=== PATIENT | female | born 1995 | race Caucasian/White ===

== ENCOUNTER 2023-05-12 18:38 | Emergency (ER) | payer OTHER, SELFPAY ==
[2023-05-12 18:44] VITALS: BP 113/66; BMI 19.4
--- NOTE | 2023-05-12 19:09 | ED.MUSCINJ ---
HPI-Injury
General
Chief Complaint: Extremity Pain (non-traumatic)
Source: patient
Exam Limitations: none
Time Seen by Provider: 05/12/23 19:06
Nursing documentation reviewed up to this point in time: agreed with
Travel History
Have you had any contact with someone who has COVID-19?: No
Do you have any symptoms of coronavirus? Fever > 100 degrees, chills, cough, shortness of breath, sore throat, loss of taste or smell, muscle aches, or headache?: No
History of Present Illness-Injury
Is this injury a work related problem?: No
Is pt an associate of [facility]?: No
Initial Injury comments:
Patient states she fell off rock wall. Denies hittingher head. COmplains of pain to left lat ankle. Injury occured just G[employer].
Past History
Past History
ED Past Medical History: None
ED Past Surgical History: None
Review of Systems
Review of Systems
Allergies reviewed?: Yes
All Other Systems: ROS reviewed and negative except as documented in HPI and ROS
Constitutional: Reports no symptoms
Musculoskeletal: Reports joint pain (Pain to left lat ankle)
Skin: Reports no symptoms
Neurological: Reports no symptoms
Psychiatric: Reports no symptoms
Musculoskeletal Injury Exam
Musculoskeletal Injury Exam
Left Lateral Ankle:
Pain with Movement?: Moderate
Tender to palpation?: Moderate
Soft tissue swelling?: Moderate
External deformity and angulation?: None
Joint effusion?: None
Contusion?: None
Hematoma-local bleeding into tissue?: None
Strain- Sprain- Tear (Connective tissue injury)?: Moderate
Crepitus with movement?: No
Joint instability?: No
Malalignment/deformity?: No
Range of motion: Limited
Distal skin color and temperature: normal-warm & good color
Capillary Refill: normal
Normal distal neurovascular exam?: Yes
Peripheral Pulses: posterior tibial (left): 3+ and dorsalis pedis (left): 3+
Phy Exam
General Physical Exam
General Presentation: well appearing and mild distress
General age: appears stated age
General Skin: warm and dry
General Habitus: normal
General Mental: alert
General Hydration: appears well hydrated
Musculoskeletal Exam
Musculoskeletal Exam: neuro vasc intact and other (Achilles intact. No tenderness base of 5th, proximal tib/fib)
Skin Exam
Skin Exam: normal color, warm/dry and no rash
Psychiatric Exam
Psychiatric Exam: normal mood/affect
Injury Course
Orders/Labs/Results
Orders:
Orders
05/12/23 18:47
Ankle, left 3 view CR [CR Ankle - Left Min 3 Views ] Urgent
Comment:
Reason For Exam: pain
05/12/23 19:09
Ortho Boot Left- Treatment ONCE
Short or tall?: Tall
*Radiology
Radiology exam reviewed: preliminary read by ED provider (No fx)
*Critical Care Note
Total Time (30-74mins, 75-104mins- exclusive of procedures): Not Applicable
ED Attending Note
-
Portions of this chart may have been created with voice recognition software.� Occasional wrong word or��sound alike� substitutions may have occurred due to the inherent limitations of voice recognition software.
Discharge Plan
Departure
Patient Disposition: Home (Routine Discharge)
Date of Disposition: 05/12/23
Time of Disposition: 19:12
Patient with high blood pressure during this ER visit?: No
Condition: Good
Covid-19: Not Applicable
Discharge Problem:
Sprain of ankle
Instructions: Ankle Sprain (DC), Ibuprofen, RICE Therapy
Referrals:
Ishmael Mock, DO [Active] - Follow up in 1 week (Follow up if your symptoms do not improve over the next week.)
Interventions
Interventions:
*Risk Screen - Suicide Last Done: 05/12/23 18:44
*Neglect/Abuse Screening Last Done: 05/12/23 18:44
*ED COVID-19 Vaccine History Last Done: 05/12/23 18:44
--- NOTE | 2023-05-12 19:27 | EDRN ---
LINDY Martin applying ortho boot
== END 2023-05-12 19:45 | disposition home or self-care (01) ==
LOC: EMR 18:38
PROVIDERS: EMERGENCY PHYSICIAN Emergency Medicine
DX: S93.402A Sprain of unspecified ligament of left ankle, initial encounter (principal); X50.1XXA Overexertion from prolonged static or awkward postures, initial encounter
CPT/HCPCS: 99283; 73610